=== PATIENT | female | born 1965 | race Caucasian/White ===

== ENCOUNTER → 2016-05-26 | Day surgery (SDC) | payer BC ==
[~2016-05-26] VITALS: Ht 170.2 cm; Wt 114.3 kg
[~2016-05-26] MED LIST: AMBIEN10 MG PO; DRISDOL 5050000 UNIT PO; FAMOTIDINE40 MG PO; FLAGYL500 MG PO; GLUCOPHAGE500 MG PO; VENLAFAXINE H37.5 MG PO; XANAX1 MG PO
== END | disposition disaster alternative care site (69) ==
LOC: GPOC 05-21 09:00 → GEND 08:01 → GPOC 09:00
PROC: 0DB58ZX Excision of Esophagus, Via Natural or Artificial Opening Endoscopic, Diagnostic (ICD-10-PCS; principal; 2016-05-26)
PROC: 0DB68ZX Excision of Stomach, Via Natural or Artificial Opening Endoscopic, Diagnostic (ICD-10-PCS; 2016-05-26)
PROC: 0D748ZZ Dilation of Esophagogastric Junction, Via Natural or Artificial Opening Endoscopic (ICD-10-PCS; 2016-05-26)
DX: K22.2 Esophageal obstruction (principal); E78.5 Hyperlipidemia, unspecified; E11.9 Type 2 diabetes mellitus without complications; F32.9 Major depressive disorder, single episode, unspecified; Z79.899 Other long term (current) drug therapy; Z79.84 Long term (current) use of oral hypoglycemic drugs
CPT/HCPCS: C1726; J2001; J7030